=== PATIENT | female | born 1960 | race Caucasian/White ===

== ENCOUNTER 2020-08-15 08:09 | Day surgery (SDC) | payer OTHER ==
[~2020-08-15 08:09] MED LIST: LOSARTAN POTAS100 MG PO; PAXIL20 MG PO; SYNTHROID PO
[2020-08-15] MEDS ORDERED: PAROXETINE HCL10 MG PO (08:26)
== END 2020-08-15 14:40 | disposition home or self-care (01) ==
LOC: CIR.AMB 08:09 → O/R 08:20
PROVIDERS: ATTEND Obstetrics & Gynecology
DX: N84.0 Polyp of corpus uteri (principal); Z20.828 Contact with and (suspected) exposure to other viral communicable diseases